=== PATIENT | male | born 1975 | race Caucasian/White ===

== ENCOUNTER → 2018-11-26 | Outpatient (CLI) | payer OTHER ==
[~2018-11-26] MED LIST: ATOR40TA PO; GADOBUTROL 10 MMOL/10 ML VIAL IV ONE
--- NOTE | 2018-11-26 17:44 | KCIC ---
MRI of the lumbar spine without and with contrast 11/26/2018 CLINICAL HISTORY: Chronic low back pain for years. TECHNIQUE: Unenhanced T1-weighted and T2-weighted sagittal and axial and inversion recovery sagittal images of the lumbar spine were obtained. After the intravenous administration of 9 cc of Gadavist, enhanced T1-weighted sagittal and axial images of the lumbar spine were obtained. FINDINGS: Minimal S-shaped curvature of the thoracolumbar spine is seen. Degenerative signal changes are seen involving the L4-5 and L5-S1 discs. Loss of height of these discs is noted. Degenerative signal changes are seen within the marrow surrounding these discs. The conus medullaris is normal morphology, position, and signal characteristics. No area of abnormal contrast enhancement is seen. On the axial images throughout the lumbar disc spaces, the changes of degenerative disc disease are seen. These consist of minimal to mild generalized disc bulges, degenerative changes involving the facet joints and mild ligamentum flavum hypertrophy. A left paracentral focal disc protrusion is seen at L1-2. This measures 3 mm in AP diameter. A focal central disc protrusions are seen at L4-5 and L5-S1. These measure 3 mm in AP diameter. These findings do not result in significant central spinal canal or neural foraminal stenosis at any level. IMPRESSION: The changes of degenerative disc disease are seen throughout the lumbar spine. These findings do not result in significant central spinal canal or neural foraminal stenosis. Electronically signed by: Bautista Minor MD (11/26/2018 5:41 PM) [id number]
== END | disposition home or self-care (01) ==
LOC: KCIC MRI 12:04
PROVIDERS: ATTEND Family Medicine
DX: M51.36 Other intervertebral disc degeneration, lumbar region (principal); M51.26 Other intervertebral disc displacement, lumbar region; M47.896 Other spondylosis, lumbar region; M47.897 Other spondylosis, lumbosacral region; R29.890 Loss of height
CPT/HCPCS: 72158; A9585